=== PATIENT | female | born 2000 | race Two or more races ===

== ENCOUNTER 2025-06-24 15:30 | Emergency (ER) | payer MEDICAID, SELFPAY ==
[2025-06-24 15:32] VITALS: BMI 31.8
[2025-06-24 15:41] VITALS: BP 123/91; PULSE 147; RESP 22; TEMP 37.1; O2SAT 98
--- NOTE | 2025-06-24 15:42 | XR_ITS ---
Examination: CT abdomen and pelvis without contrast. Coronal 3-D reconstructions. Sagittal 2-D reconstructions. Date and time of exam:June 24, 2025, 1659 hrs. Indications: Severe epigastric pain with onset vomiting beginning 4 days ago. CTDI: vol (mGy): 9.56. DLP: (mGycm): 553. Technique: Axial images of the abdomen have been obtained, 3 mm slice thickness Intravenous contrast material has not been administered. Low dose protocols were performed. One or more of the following dose reduction techniques were used; automated exposure control, adjustment of the mA and/or KV according to patient size, use of iterative reconstruction technique. Findings: No focal liver or splenic lesions No gallstones No pancreatic or adrenal mass. No renal or ureteral calculi, no hydronephrosis Aorta normal size. No bowel obstruction. 8mm fat-containing umbilical hernia Normal appendix No bowel obstruction or diverticulitis Prominent right ovary 4.2 cm No uterine mass No bladder mass or bladder calculi Impression: No renal or ureteral calculi, no hydronephrosis Normal appendix Prominent right ovary, recommend pelvic sonography follow-up
--- NOTE | 2025-06-24 15:45 | EKG_ITS ---
[facility] Test Date: 2025-06-24 Pat Name: BRINA FIGUEROA Department: Room: - Gender: Female Bait Packer: : 2000 Requested By: Ken Mckoy Order Number: [id number] Reading MD: Ken Mckoy Measurements Intervals [place] Rate: 147 P: 75 OR: 131 QRS: 78 QRSD: 76 T: 66 QT: 322 QTc: 504 Interpretive Statements SINUS TACHYCARDIA, POSSIBLE ATRIAL FLUTTER NONSPECIFIC ST & T-WAVE ABNORMALITY ABNORMAL RHYTHM ECG No previous ECG available for comparison /store/S0/[id number]/ecg/[id number].pdf
[2025-06-24] MEDS: SODIUM CHLORIDE 0.9% 1000 ML 1,000 ML 999 ML IV (16:06)
[2025-06-24 16:16] LABS: Collection Type, Urine Clean Catch
[2025-06-24 16:18] LABS: Basophils # (Auto) 0.0 Thou/mm3 (0.0-0.2); Basophils % (Auto) 0 % (0-2.5); Eosinophils # (Auto) 0.7 Thou/mm3 (0.0-0.5); Eosinophils % (Auto) 5 % (0-10); Hematocrit 48.6 % (36.0-46.0); Hemoglobin 15.5 g/dL (12.0-16.0); Immature Granulocytes Auto 0.03 Thou/mm3 (0.00-0.00); Lymphocytes # (Auto) 4.1 Thou/mm3 (1.0-4.8); Lymphocytes % (Auto) 34 % (10-50); Mean Corpuscular HGB Conc 31.9 g/dl (31.0-37.0); Mean Corpuscular Hemoglobin 23.0 pg (25.0-35.0); Mean Corpuscular Volume 72 fL (80-100); Monocytes # (Auto) 0.7 Thou/mm3 (0.0-0.8); Monocytes % (Auto) 6 % (0-12); Neutrophils # (Auto) 6.5 Thou/mm3 (1.8-7.7); Neutrophils % (Auto) 54 % (37-80); Nucleated Red Blood Cell # 0.00 Thou/mm3 (0.00-0.00); Nucleated Red Blood Cell % 0 /100 WBC (0); Platelet Count 440 Thou/mm3 (140-440); RDW Standard Deviation 39.8 fL (36.4-46.3); Red Blood Count 6.75 Miln/mm3 (4.00-5.20); White Blood Count 12.0 Thou/mm3 (3.6-11.0)
[2025-06-24] MEDS: ONDANSETRON INJ 2 MG/ML INJ 2 ML 4 MG IVP (16:18)
[2025-06-24 16:37] LABS: HCG Qualitative,Urine Negative
[2025-06-24 16:42] LABS: Bacteria,Urine Rare; Bilirubin,Urine 1+ (Negative); Blood,Urine Negative (Negative); Color,Urine Yellow (Lt Yel-Yel); Glucose, Urine Negative (Negative); Ketones,Urine 4+ (Negative); Leukocyte Esterase,Urine Positive (Negative); Nitrite,Urine Negative (Negative); PH,Urine 6.0 (5.0-7.0); Protein,Urine 1+ (Neg - Trace); RBC,Urine 2 /hpf (0-3); Specific Gravity,Urine 1.033 (1.001-1.035); Squamous Epithelial Cell,Urine 24 /hpf (0-5); Urobilinogen,Urine 2.0 mg/dL (0.0-1.0); WBC,Urine 13 /hpf (0-5)
[2025-06-24 16:43] VITALS: BP 98/70; PULSE 102; RESP 18; O2SAT 100
[2025-06-24 16:51] LABS: Clarity,Urine Hazy (Clear/Hazy)
[2025-06-24 16:51] LABS: Alanine Aminotransferase 9 U/L (10-49); Albumin, Serum 4.6 gm/dL (3.5-5.0); Albumin/Globulin Ratio 1.5 (1.2-2.2); Alkaline Phosphatase 103 U/L (46-116); Anion Gap 16 (7-16); Aspartate Amino Transferase 15 U/L (0-34); BUN/Creatinine Ratio 9 Ratio (12-20); Bilirubin,Total 0.7 mg/dL (0.3-1.2); Blood Urea Nitrogen 8 mg/dL (9-23); Calcium 9.4 mg/dL (8.3-10.6); Calcium (Corrected) 9.4 mg/dL (8.5-10.1); Carbon Dioxide 23.3 mMol/L (20.0-31.0); Chloride 100 mMol/L (98-107); Creatinine (Component) 0.9 mg/dL (0.6-1.3); Estimated Creatinine Clearance 95.9 mL/min (>60); Globulin 3.1 gm/dL (2.3-3.5); Glucose 107 mg/dL (74-106); Lipase 37 U/L (12-53); Osmolality,Calculated 275 (275-295); Potassium 3.6 mMol/L (3.4-5.1); Sodium 139 mMol/L (136-145); Total Protein 7.7 gm/dL (5.7-8.2); eGFR > 60 See Note
--- NOTE | 2025-06-24 17:57 | XR_ITS ---
Examination: Pelvic ultrasound, transabdominal, complete Technique: Transabdominal ultrasound of the pelvis performed using grayscale imaging Date and time of exam: June 24, 2025, 1914 hrs. Indications: Pelvic pain beginning 5 days ago, prominent right ovary on CT pelvis study today Findings: Uterus 8.1 cm endometrial stripe 0.5 cm No uterine mass or intrauterine gestation Right ovary 4.3 cm arterial flow, 17 x 20 mm simple cyst Left ovary 4.6 cm arterial flow Impression: Right ovarian simple cyst 17 x 16 x 20 mm
--- NOTE | 2025-06-24 21:02 | PD.EDABDPN ---
ED Abdominal Pain RME/HPI General Chief Complaint: Nausea/Vomiting/Diarrhea Stated complaint: N/V/D, CRAMPS Time seen by provider: 06/24/25 15:35 Arrival date/time: 06/24/25 15:30 This is a case of 24-year-old female with no medical history currently taking Zepbound injection for obesity came in in the emergency room due to abdominal pain cramping and burning sensation in character associated with on and off nausea vomiting and loose stool for 4 days persistence of the symptoms this patient decided to sought consult here in the emergency room no other symptoms noted no fever no chills Limitations: no limitations Related Data Previous Rx's ?Medication ?Instructions ?Recorded cephalexin 500 mg tablet 500 mg PO TID #30 tabs 06/24/25 famotidine 20 mg tablet 20 mg PO BID #60 tabs 06/24/25 omeprazole 20 mg capsule,delayed 20 mg PO QDAY #30 caps 06/24/25 release ondansetron 4 mg disintegrating 4 mg PO Q8H PRN nausea and 06/24/25 tablet vomiting #10 tabs Allergies Allergy/AdvReac Type Severity Reaction Status Date / Time No Known Allergies Allergy Verified 06/24/25 15:33 Review of Systems Review of Systems Systems Reviewed: All systems reviewed, normal except as documented Constitutional Constitutional: Reports system reviewed and no additional complaints, except as documented and Reports as per HPI Cardiovascular Cardiovascular: Reports system reviewed and no additional complaints, except as documented and Reports as per HPI Respiratory Respiratory: Reports system reviewed and no additional complaints, except as documented and Reports as per HPI Gastrointestinal Gastrointestinal: Reports system reviewed and no additional complaints, except as documented, Reports as per HPI, Reports abdominal pain and Reports vomiting Genitourinary Genitourinary: Reports system reviewed and no additional complaints, except as documented and Reports as per HPI Musculoskeletal Musculoskeletal: Reports system reviewed and no additional complaints, except as documented and Reports as per HPI Neurologic Neurologic: Reports system reviewed and no additional complaints, except as documented and Reports as per HPI Past Medical History Social History SMOKING STATUS: Never smoker ED Exam General Limitations: Present no limitations General appearance: Present alert, in no apparent distress and other (Patient is awake alert oriented not in distress nontoxic looking well-hydrated well-nourished) Head Head exam: Present atraumatic, normocephalic and normal inspection Eye Eye exam: Present normal appearance, PERRL and EOMI ENT ENT exam: Present normal exam, normal oropharynx and mucous membranes moist Neck Neck exam: Present normal inspection, full ROM and trachea midline; Absent tenderness Chest Chest inspection: Present normal inspection and symmetric chest wall rise; Absent tenderness Respiratory Respiratory exam: Present normal lung sounds bilaterally; Absent respiratory distress, wheezes, stridor, accessory muscle use or prolonged expiratory phase Cardiovascular Cardiovascular exam: Present regular rate, normal rhythm and normal heart sounds; Absent bradycardia, tachycardia, irregular rhythm, systolic murmur or diastolic murmur Abdominal Exam Abdominal exam: Present soft, tenderness (Mild tenderness in the periumbilical area) and normal bowel sounds; Absent distention, guarding, rebound, rigidity, diminished bowel sounds, hyperactive bowel sounds, hypoactive bowel sounds, organomegaly, trauma, incision, psoas sign, obturator sign, Stiles's sign, Rovsing's sign, tenderness at McBurney's Point, ascites or hernia Extremities Exam Extremities exam: Present normal inspection and full ROM Back Exam Back exam: Present normal inspection and full ROM Neurological Exam Neurological exam: Present alert, oriented X3, CN II-XII intact, normal gait and reflexes normal; Absent motor sensory deficit Psychiatric Psychiatric exam: Present normal affect and normal mood Skin Skin exam: Present warm, dry, intact and normal color Course Quality Measures none Orders Category Date Time Status EKG (ED ONLY) *Do not use* NOW Care 06/24/25 15:[address] abdomen pelvis wo con Stat Exams 06/24/25 15:42 Completed EKG (ED Only) Stat Exams 06/24/25 15:44 Ordered EKG (ED Only) Stat Exams 06/24/25 15:45 Draft US pelvic complete Stat Exams 06/24/25 17:57 Completed CBC Stat Lab 06/24/25 16:00 Completed Comprehensive Metabolic Panel Stat Lab 06/24/25 16:00 Completed HCG Qualitative,Urine Stat Lab 06/24/25 16:09 Completed Lipase Stat Lab 06/24/25 16:00 Completed Urinalysis Stat Lab 06/24/25 16:09 Completed Albuterol/Ipratr Rt Jackelin [Duoneb Rt Jackelin] Med 06/24/25 23:00 Discontinued 3 ml INH Q4HRRT HYDROcodone*/APAP 5/325 [[place] 5/325] Med 06/24/25 15:44 Discontinued 1 tab PO X1 ONE Magnesium Sulfate 2 GM Ivpb [Magnesium Sulfate Ivpb] Med 06/24/25 19:26 Discontinued 2 gm in 50 ml IV X1 MethylPREDNISolone. [SoluMEDROL Inj] Med 06/24/25 19:25 Discontinued 80 mg IVP X1 ONE Ondansetron Inj [Zofran Inj] Med 06/24/25 15:44 Discontinued 4 mg IVP X1 ONE Pantoprazole Inj [Protonix Inj] Med 06/24/25 15:45 Discontinued 40 mg IVP QDAY Sodium Chloride 0.9% 1000 ml [Ns] 1,000 ml Med 06/24/25 15:44 Discontinued IV 999 mls/hr Vital Signs Vital signs: Vital Signs Temperature 98.7 F 06/24/25 15:41 Pulse Rate 147 H 06/24/25 15:41 Respiratory Rate 22 H 06/24/25 15:41 Blood Pressure 123/91 H 06/24/25 15:41 Pulse Oximetry (%) 98 06/24/25 15:41 Oxygen Delivery Method Room Air 06/24/25 15:41 Oxygen saturation is 98% in room air Abdominal Pain MDM MDM Narrative MDM Narrative:: This is a case of 24-year-old female with no medical history currently taking Zepbound injection for obesity came in in the emergency room due to abdominal pain cramping and burning sensation in character associated with on and off nausea vomiting and loose stool for 4 days persistence of the symptoms this patient decided to sought consult here in the emergency room no other symptoms noted no fever no chills physical examination patient is awake alert oriented not in distress nontoxic looking well-hydrated well-nourished excellent skin turgor lungs sound is clear no crackles no rales no retraction no stridor heart normal rate regular rhythm no murmur abdominal exam is benign nonsurgical no guarding no rebound no rigidity mild tenderness in the periumbilical area negative psoas negative straight or negative Rovsing's no McBurney sign Stiles sign negative CVA tenderness bladder is not distended not tender the rest of the physical examination and neurological exam is normal and unremarkable blood test showed mild leukocytosis WBCs 12,000 no anemia kidney and liver function is normal no electrolyte imbalance patient urinalysis showed WBC in the urine suggestive of urinary tract infection CT scan of the abdomen showed periumbilical area and pelvic cyst which they request for an ultrasound of the pelvis which showed ovarian cyst no ovarian torsion at this point patient was given GI cocktail for possible gastritis and Zofran for vomiting after 30 minutes patient condition markedly improved abdominal pain was resolved abdominal exam is benign nonsurgical no guarding no rebound no rigidity patient was advised to follow-up with PCP in 2 days for reevaluation and to be referred to spine supervisor for gastritis and umbilical hernia and OB licensing and registration director for Zofran hydration increase water intake Pedialyte and Gatorade was advised patient was prescribed cephalexin for urinary tract infection modified diet was also advised patient for any worsening symptoms or any emergent concern return precaution in the emergency room is advised Patient was discharged with comfortable condition walking with stable gait. Patient verbalized no further complains explained diagnosis and answered patient question. Patient is comfortable with the proposed management plan including the need to follow up with his/her primary care physician and any specialist if applicable Discussed patient for any urgent condition or worsening sx, He/She needed to go to emergency room immediately or call 911. Patient acknowledge the responsibility to follow up as instructed and to monitor her/his symptoms. For any persistence of the symptoms for more than 3-5 days return precaution advised. Discussed the result of the test and was given printed discharge instruction Patient data External records reviewed:: [facility] previous records Clinical information provided by:: patient Social determinants that could affect healthcare access:: none Patient has the following chronic illnesses:: None How is presenting disease/condition affected by chronic disease/condition?: no chronic disease Evaluation data The following diagnostics were reviewed and interpreted by me:: lab results and radiology exam(s) Lab and/or radiology exams considered but not ordered:: Reviewed Interpretation Summary: Reviewed Medications / Prescriptions Medications or Prescriptions considered but not ordered:: Given Medication administrations:: Medication Administration History Discontinued Medications Hydrocodone Bitart/Acetaminophen (Hydrocodone/Apap 5/325 Tablet) 1 tab PO X1 ONE Stop: 06/24/25 15:45 Last Admin: 06/24/25 16:26 Dose: Not Given Documented By: CORETTA Non-Admin Reason: Patient Refused Albuterol/Ipratropium (Albuterol/Ipratropium (Duoneb) Rt Jackelin 3 Ml Nebu) 3 ml INH Q4HRRT ALVIN Stop: 07/24/25 22:59 Sodium Chloride (Ns) 1,000 mls @ 999 mls/hr IV .Q1H1M ONE Stop: 06/24/25 16:44 Last Infusion: 06/24/25 16:48 Dose: Infused Documented By: Admin: 06/24/25 16:06 Dose: 999 mls/hr Documented By: CORETTA Magnesium Sulfate (Magnesium Sulfate Ivpb) 2 gm in 50 mls @ 25 mls/hr IV X1 ONE Stop: 06/24/25 21:25 Methylprednisolone Sodium Succinate (Methylprednisolone Sod Succ 40 Mg/Ml Vial) 80 mg IVP X1 ONE Stop: 06/24/25 19:26 Last Admin: 06/24/25 19:34 Dose: Not Given Documented By: WARREN Non-Admin Reason: Cancelled by Provider Ondansetron HCl (Ondansetron Inj 2 Mg/Ml Inj 2 Ml) 4 mg IVP X1 ONE; Protocol Stop: 06/24/25 15:45 Last Admin: 06/24/25 16:18 Dose: 4 mg Documented By: ADONIS Pantoprazole Sodium (Pantoprazole Inj 40 Mg Vial) 40 mg IVP QDAY ALVIN Stop: 07/24/25 15:44 Last Admin: 06/24/25 16:18 Dose: 40 mg Documented By: ARF Given Consultations Consultation(s) initiated? (list below): No Diagnosis Differential diagnosis abdominal pain: abdominal pain, acute appendicitis, calculus of kidney, diverticulitis, endometriosis, gastroenteritis, pancreatitis and small bowel obstruction Most likely diagnosis given after review of the tests above:: Ovarian cyst gastritis periumbilical hernia Admission Indicated Admission indicated?: not indicated Explain why admission is indicated or not indicated:: Not indicated Admission Request Was there a request for admission?: No Admission Attestation Admission request attestation: Not indicated Disposition Plan Disposition Plan: Discharge Discharge Attestation Discharge Attestation: The patient and all family members were given an opportunity to ask questions and understood the discharge instructions. Discharge instructions specifically effects, indications for sooner follow up or return to the emergency department, and the expected course of current diagnosis. Patient condition: Stable Discharge Plan Plan Patient Disposition: HOME (Self Care) Patient condition on transfer: Stable Prescriptions/Referrals Prescriptions/Med Rec: New famotidine 20 mg tablet 20 mg PO BID Qty: 60 0RF omeprazole 20 mg capsule,delayed release(DR/EC) 20 mg PO QDAY Qty: 30 0RF ondansetron 4 mg tablet,disintegrating 4 mg PO Q8H PRN (Reason: nausea and vomiting) Qty: 10 0RF cephalexin 500 mg tablet 500 mg PO TID Qty: 30 0RF Referrals: Litzy Arroyo, [employer] [Primary Care Provider] - In 1 week Problem List Clinical Impression: Abdominal pain, Gastritis, Ovarian cyst, Hernia, umbilical, Urinary tract infection Patient/Caregiver Discharge Instructions Education Materials: Abdominal Pain, Urinary Tract Infections in Women, ED Gastritis (Adult), ED Hernia (Adult), ED Ovarian Cyst Additional Instructions: Follow-up with your primary care physician in 2 days for reevaluation and to be referred to spine supervisor for further evaluation and treatment of gastritis and umbilical hernia for possible EGD you also need to be referred to OB licensing and registration director for further evaluation and treatment of ovarian cysts persistent recurrence worsening symptoms or any emergent concern call 911 or go to the nearest emergency room take your medication as directed Pedialyte Gatorade for hydration and for any bouts of vomiting avoid skipping of meals avoid fatty fried high cholesterol food avoid spicy food avoid soda coffee or alcohol take your medication as directed finish the course of antitbioci Print Language: Moroccan Stand Alone Forms: [facility] Award Info., Patient Portal Info Letter PA/NUCLEAR REACTOR OPERATOR Supervising Physician PA/NUCLEAR REACTOR OPERATOR Supervising Physician: dr hoang
[2025-06-24 21:14] VITALS: BP 122/67; PULSE 78; RESP 18; TEMP 36.6; O2SAT 98
== END 2025-06-24 21:15 | disposition home or self-care (01) ==
PROVIDERS: Nurse Practitioner Family; Emergency Provider Emergency Medicine; PCP Nurse Practitioner Family
DX: K29.70 Gastritis, unspecified, without bleeding (principal); N39.0 Urinary tract infection, site not specified; K42.9 Umbilical hernia without obstruction or gangrene; N83.291 Other ovarian cyst, right side; R00.0 Tachycardia, unspecified
CPT/HCPCS: 36415; 74176; 76856; 80053; 81001; 81025; 83690; 85025; 93005; 96361; 96374; 96375; 99283; J2405; J2470; J7030